=== PATIENT | female | born 1975 | race Caucasian/White ===

== ENCOUNTER 2017-03-29 22:37 | Emergency (ER) | payer SELFPAY ==
[~2017-03-29] VITALS: Ht 162.5 cm; Wt 88.5 kg
[~2017-03-29 22:37] MED LIST: CELEXA20 MG PO; CLARITIN-D 12 H1 TAB PO; FLEXERIL10 MG PO; FLEXERIL5 MG PO; FLONASE ALLERG9.9 ML NAS; HYDROCODONE BIT1 T11 PO; MOTRIN800 MG PO; NO DAILY MEDS; PREDNICOT20 MG PO; PREDNISONE10 MG PO; ROBITUSSIN AC 110 ML PO; ULTRAM50 MG PO; VICODIN 5/500 505 MG PO; VOLTAREN50 M1 PO
== END 2017-03-29 23:28 | disposition home or self-care (01) ==
LOC: ED 22:37
DX: H10.9 Unspecified conjunctivitis (principal); F17.200 Nicotine dependence, unspecified, uncomplicated; F10.10 Alcohol abuse, uncomplicated; Z98.51 Tubal ligation status; Z79.899 Other long term (current) drug therapy

== ENCOUNTER 2020-06-18 19:38 | Emergency (ER) | payer SELFPAY ==
[~2020-06-18] VITALS: Ht 162.5 cm; Wt 88.5 kg
[~2020-06-18 19:38] MED LIST changes: +AMOXICILLIN500 M2 PO; +DIFLUCAN150 MG PO; +ZITHROMAX250 MG PO; +ZYRTEC10 MG PO
[2020-06-18] MEDS ORDERED: HYDROCODONE-AC1 EAC1 PO (20:44)
[2020-06-18] MEDS ORDERED: IBUPROFEN600 MG PO (20:44)
[2020-06-18] MEDS ORDERED: DOXYCYCLINE100 M3 PO (20:44)
== END 2020-06-18 21:41 | disposition home or self-care (01) ==
LOC: ED 19:38
DX: L02.415 Cutaneous abscess of right lower limb (principal); F41.9 Anxiety disorder, unspecified; F17.200 Nicotine dependence, unspecified, uncomplicated; Z98.51 Tubal ligation status

== ENCOUNTER 2020-06-21 07:51 | Emergency (ER) | payer SELFPAY ==
[~2020-06-21] VITALS: Wt 88.5 kg
[~2020-06-21 07:51] MED LIST changes: +DOXYCYCLINE100 M3 PO; +HYDROCODONE-AC1 EAC1 PO; +IBUPROFEN600 MG PO
[2020-06-21] MEDS ORDERED: CIPRO500 MG PO (08:17)
== END 2020-06-21 08:29 | disposition home or self-care (01) ==
LOC: ED 07:51
DX: R42 Dizziness and giddiness (principal); T36.4X5A Adverse effect of tetracyclines, initial encounter; R11.0 Nausea; F17.200 Nicotine dependence, unspecified, uncomplicated; Z79.899 Other long term (current) drug therapy; Z79.2 Long term (current) use of antibiotics; Z98.51 Tubal ligation status; Y92.89 Other specified places as the place of occurrence of the external cause

== ENCOUNTER 2020-12-31 16:54 | Emergency (ER) | payer SELFPAY ==
[~2020-12-31] VITALS: Ht 162.5 cm; Wt 102.1 kg
[~2020-12-31 16:54] MED LIST changes: +CIPRO500 MG PO
== END 2020-12-31 19:01 | disposition home or self-care (01) ==
LOC: ED 16:54
DX: U07.1 COVID-19 (principal); J06.9 Acute upper respiratory infection, unspecified; Z79.899 Other long term (current) drug therapy; Z79.2 Long term (current) use of antibiotics; Z98.51 Tubal ligation status

== ENCOUNTER → 2023-03-19 | Outpatient (CLI) | payer BC ==
[2023-03-19 10:57] LABS: HEMATOCRIT 42.3 % (37.0-47.0); MEAN CELL VOLUME 99.1 fl (81.0-99.0); MEAN CORPUSCULAR HGB 32.6 pg (27.0-31.0); MEAN CORPUSCULAR HGB CONC 32.9 g/dl (33.0-37.0); MEAN PLATELET VOLUME 9.6 fl (9.6-12.3); RED BLOOD COUNT 4.27 10*6/uL (4.10-5.10); RED CELL DISTRI WIDTH 13.1 % (0-14.5); WHITE BLOOD COUNT 7.7 10*3/uL (4.8-10.8)
[2023-03-19 11:49] LABS: ALKALINE PHOSPHATASE 46 U/L (46-116); BUN 14 mg/dl (9-23); CHLORIDE 111 mmol/L (98-107); CHOLESTEROL 148 mg/dL (<200); FREE T4 1.06 ng/dl (0.89-1.76); LDL CHOLESTEROL 87 mg/dL (9-159); POTASSIUM 4.2 mmol/L (3.4-5.1); SGPT/ALT 14 U/L (5-49); TOTAL PROTEIN 6.3 gm/dL (6.0-8.0); TRIGLYCERIDES 58 mg/dl (<150)
[2023-03-19 12:45] LABS: VITAMIN D, 25-HYDROXY 12.8 ng/mL (30-100)
== END | disposition home or self-care (01) ==
LOC: LAB 10:32
PROVIDERS: ATTEND Family Medicine
DX: Z13.220 Encounter for screening for lipoid disorders (principal); E78.00 Pure hypercholesterolemia, unspecified; E55.9 Vitamin D deficiency, unspecified; R53.83 Other fatigue; K21.9 Gastro-esophageal reflux disease without esophagitis; R63.4 Abnormal weight loss; F41.1 Generalized anxiety disorder; E74.00 Glycogen storage disease, unspecified

== ENCOUNTER 2024-05-13 12:13 | Emergency (ER) | payer SELFPAY ==
[~2024-05-13] VITALS: Ht 162.5 cm; Wt 77.6 kg
[2024-05-13] MEDS ORDERED: VITAMIN D250 MCG PO (12:23)
== END 2024-05-13 15:13 | disposition home or self-care (01) ==
LOC: ED 12:13
DX: J06.9 Acute upper respiratory infection, unspecified (principal); Z20.822 Contact with and (suspected) exposure to COVID-19; R19.7 Diarrhea, unspecified; Z79.899 Other long term (current) drug therapy; Z98.51 Tubal ligation status

== ENCOUNTER 2024-12-20 16:12 | Emergency (ER) | payer SELFPAY ==
[~2024-12-20] VITALS: Ht 162.5 cm; Wt 72.6 kg
[~2024-12-20 16:12] MED LIST changes: +VITAMIN D250 MCG PO
[2024-12-20] MEDS ORDERED: FLONASE ALLERG9.9 ML NAS (19:16)
[2024-12-20] MEDS ORDERED: AMOX-CLAV 875-1 EACH PO (19:16)
[2024-12-20] MEDS ORDERED: Amoxicillin/Clavulanate Pota 875 MG TAB PO ONE (19:20)
== END 2024-12-20 19:30 | disposition home or self-care (01) ==
LOC: ED 16:12
DX: J01.90 Acute sinusitis, unspecified (principal); F41.9 Anxiety disorder, unspecified; Z98.51 Tubal ligation status

== ENCOUNTER 2024-12-27 17:19 | Emergency (ER) | payer SELFPAY ==
[~2024-12-27] VITALS: Ht 162.5 cm; Wt 75.7 kg
[~2024-12-27 17:19] MED LIST changes: +AMOX-CLAV 875-1 EACH PO
[2024-12-27 18:44] LABS: BILIRUBIN Negative (Negative); BLOOD Negative (Negative); CLARITY Cloudy (Clear); COLOR Dark Yellow (Yellow); KETONE Trace (Negative); LEUKO ESTERASE Negative (Negative); NITRITE Positive (Negative); PH 7.0 (4.5-8.0); SPECIFIC GRAVITY >= 1.030 (1.001-1.030); UROBILINOGEN 1.0 E.U./dl (0.0-1.0)
[2024-12-27 18:57] LABS: BACTERIA 3+; FINE GRANULAR CAST 0-2; RBC 0-2 rbc/hpf (0-2)
[2024-12-27] MEDS ORDERED: CIPRO500 MG PO (18:59)
[2024-12-27] MEDS ORDERED: Ciprofloxacin Hydrochloride 500 MG TAB PO ONE (19:00)
== END 2024-12-27 19:03 | disposition home or self-care (01) ==
LOC: ED 17:19
PROVIDERS: Emergency Medicine
DX: N39.0 Urinary tract infection, site not specified (principal); F41.9 Anxiety disorder, unspecified; Z79.899 Other long term (current) drug therapy; Z98.51 Tubal ligation status